=== PATIENT | male | born 1970 | race Hispanic/Latino ===

== ENCOUNTER 2018-08-03 20:49 | Inpatient (IN) | payer BC, OTHER ==
[~2018-08-03] VITALS: Ht 180.3 cm; Wt 119.4 kg
[2018-08-03] MEDS ORDERED: KETOROLAC TROMETHAMINE 30MG/ML ONE (21:30)
[2018-08-03 21:47] LABS: BASOPHILS % (AUTO) 0.9 % (0.0-5.0); EOSINOPHILS % (AUTO) 1.7 % (0.0-8.0); HEMATOCRIT 44.8 % (42-54); LYMPHOCYTES % (AUTO) 21.5 % (21.0-51.0); MEAN CORPUSCULAR HGB CONC 34.1 g/dL (32.0-36.0); MONOCYTES % (AUTO) 6.9 % (3.0-13.0); PLATELET COUNT (AUTO) 270 K/uL (130-400); RED BLOOD CELL COUNT(AUTO) 5.08 MIL/uL (4.50-6.20); RED CELL DISTRIBUTION WIDTH 13.2 % (11.0-15.5); WHITE BLOOD COUNT (AUTO) 13.5 K/uL (4.8-10.8)
[2018-08-03] MEDS ORDERED: IOHEXOL-350 75 ML VIAL IV ONE (21:56)
[2018-08-03 21:57] LABS: POTASSIUM 3.9 mmol/L (3.5-5.1)
[2018-08-03 22:01] LABS: APPEARANCE,URINE Clear (CLEAR); BILIRUBIN,URINE Negative (NEGATIVE); COLOR,URINE Yellow (YELLOW); GLUCOSE, URINE (UA) 500 mg/dL (NEGATIVE); KETONES,URINE Negative (NEGATIVE); LEUKOCYTE ESTERASE ,URINE Negative (NEGATIVE); NITRATE,URINE Negative (NEGATIVE); OCCULT BLOOD,URINE Negative (NEGATIVE); PROTEIN,URINE Negative (NEGATIVE)
[2018-08-03 22:03] LABS: ALBUMIN 3.4 g/dL (3.5-5.0); BILIRUBIN,TOTAL 0.4 mg/dL (0.2-1.0); TOTAL PROTEIN, SERUM 7.1 g/dL (6.0-8.3)
[2018-08-03 22:13] LABS: BACTERIA,URINE None Seen /HPF (None Seen); RBC,URINE 0-1 /HPF (0-1); SQUAMOUS EPITHELIAL CELL,UR None Seen /HPF (0-2); WBC,URINE 0-1 /HPF (0-1)
[2018-08-03] MEDS ORDERED: METRONIDAZOLE 500MG/100ML BAG 100 ML ONE (23:06)
[2018-08-03] MEDS ORDERED: LEVOFLOXACIN 500 MG/D5W 100 ML 100 ML ONE (23:06)
[2018-08-03] MEDS ORDERED: ACETAMINOPHEN-CODEINE 300/30MG TAB ONE (23:14)
[2018-08-04] VITALS (7 sets, daily range): BP systolic 142–164; BP diastolic 81–103
[2018-08-04] MEDS: SODIUM CHLORIDE 0.9% 1000ML 1,000 ML IV SCH ×3 (00:23→19:57)
[2018-08-04] MEDS ORDERED: ONDANSETRON HCL MDV 20ML 2 MG/ML VIAL IV PRN (00:30)
[2018-08-04] MEDS: LEVOFLOXACIN 500 MG/D5W 100 ML 100 ML IV SCH (00:30)
[2018-08-04] MEDS: METRONIDAZOLE 500MG/100ML BAG 100 ML IV SCH ×3 (00:30→15:48)
[2018-08-04] MEDS ORDERED: HYDROCODONE/ACETAMINOPHEN 5/325 MG TAB PO PRN (00:30)
[2018-08-04] MEDS ORDERED: ACETAMINOPHEN 325 MG TAB PO PRN (00:30)
[2018-08-04] MEDS: FAMOTIDINE/PF 20 MG/2 ML VIAL IV SCH ×2 (09:38→19:57)
[2018-08-04] MEDS ORDERED: MORPHINE SULFATE 4 MG/1ML SYG IV PRN (17:15)
[2018-08-04] MEDS ORDERED: MORPHINE SULFATE 2 MG/ML 1ML SYG IVP PRN (17:15)
[2018-08-05] MEDS: METRONIDAZOLE 500MG/100ML BAG 100 ML IV SCH ×2 (00:06→08:15)
[2018-08-05] MEDS: SODIUM CHLORIDE 0.9% 1000ML 1,000 ML IV SCH (00:06)
[2018-08-05] MEDS: LEVOFLOXACIN 500 MG/D5W 100 ML 100 ML IV SCH (00:06)
[2018-08-05 04:28] VITALS: BP 164/80
[2018-08-05 04:51] LABS: BASOPHILS % (AUTO) 0.5 % (0.0-5.0); EOSINOPHILS % (AUTO) 1.2 % (0.0-8.0); HEMATOCRIT 43.1 % (42-54); MEAN CORPUSCULAR HEMOGLOBIN 29.2 pg (27.0-33.0); MEAN CORPUSCULAR HGB CONC 33.4 g/dL (32.0-36.0); MEAN CORPUSCULAR VOLUME 87.5 fL (79-99); MONOCYTES % (AUTO) 9.4 % (3.0-13.0); NEUTROPHILS % (AUTO) 68.9 % (40.0-77.0); PLATELET COUNT (AUTO) 239 K/uL (130-400); RED BLOOD CELL COUNT(AUTO) 4.93 MIL/uL (4.50-6.20); RED CELL DISTRIBUTION WIDTH 12.8 % (11.0-15.5); WHITE BLOOD COUNT (AUTO) 12.3 K/uL (4.8-10.8)
[2018-08-05 04:56] LABS: HEMOGLOBIN A1C 6.5 % (4.0-6.0)
[2018-08-05 05:11] LABS: BILIRUBIN,TOTAL 0.7 mg/dL (0.2-1.0); CRP QUANTITATIVE 145.9 mg/L (0.00-9.0); POTASSIUM 3.9 mmol/L (3.5-5.1); TOTAL PROTEIN, SERUM 6.8 g/dL (6.0-8.3)
[2018-08-05 07:54] VITALS: BP 154/85
[2018-08-05] MEDS: FAMOTIDINE/PF 20 MG/2 ML VIAL IV SCH (08:15)
[2018-08-05] MEDS ORDERED: METR500T PO (10:15)
[2018-08-05] MEDS ORDERED: LEVO500T2 PO (10:15)
[2018-08-05 11:45] VITALS: BP 156/90
[2018-08-05 16:26] VITALS: BP 158/79
== END 2018-08-05 17:15 | disposition home or self-care (01) | DRG 392 ==
LOC: EDH 20:49 → EDHIP 08-04 00:02 → OBSVTOIN 08-04 00:02 → 4AH 08-04 02:05
PROVIDERS: ADMIT Internal Medicine; ATTEND Internal Medicine
DX: K57.92 Diverticulitis of intestine, part unspecified, without perforation or abscess without bleeding (principal); E44.1 Mild protein-calorie malnutrition; F17.210 Nicotine dependence, cigarettes, uncomplicated; Z68.36 Body mass index [BMI] 36.0-36.9, adult
CPT/HCPCS: 36415; 74177; 80053; 80061; 81001; 82270; 83036; 83605; 83690; 85025; 86140; 87040; J1885; J1956; J3490; Q9967